=== PATIENT | male | born 1970 | race African-American/Black ===

== ENCOUNTER 2025-02-01 16:38 | Inpatient (IN) | payer OTHER ==
[2025-02-01] VITALS (8 sets, daily range): BP systolic 130–161; BP diastolic 92–115; PULSE 86–93; RESP 8–18; TEMP 98–98.2; O2SAT 95–97
[~2025-02-01] VITALS: Ht 170.2 cm; Wt 65.8 kg
[2025-02-01] MEDS: SODIUM CHLORIDE 0.9% 1000ML 1,000 ML IV ONE (17:30)
[2025-02-01 17:31] LABS: BASOPHILS # (AUTO) 0.1 (0.0-0.1); BASOPHILS % 0.5 % (0.0-1.0); EOSINOPHILS # (AUTO) 0.1 (0.0-0.4); HEMATOCRIT 51.8 % (38.2-49.6); HEMOGLOBIN 17.7 g/dL (14.0-18.0); LYMPHOCYTES # (AUTO) 1.8 (1.0-3.2); LYMPHOCYTES % 15.9 % (18.0-39.1); MEAN CORPUSCULAR HEMOGLOBIN 27.2 pg (28-32); MEAN CORPUSCULAR HGB CONC 34.2 g/dL (31-35); MEAN CORPUSCULAR VOLUME 79.6 fL (81-99); MONOCYTES # (AUTO) 0.8 (0.2-0.8); NEUTROPHILS # (AUTO) 8.5 (2.1-6.9); NEUTROPHILS % 75.1 % (38.7-80.0); PLATELET COUNT 312 x10e3/uL (140-360); RED BLOOD COUNT 6.51 x10e6/uL (4.3-5.7); RED CELL DISTRIBUTION WIDTH 12.7 % (11.7-14.4); WHITE BLOOD COUNT 11.35 x10e3/uL (4.8-10.8)
[2025-02-01] MEDS ORDERED: ONDANSETRON HCL INJ 2MG/ML 2ML 2 MG/ML VIAL ONE (17:31)
[2025-02-01 17:38] LABS: ABG PCO2 24 mmHg (35-45); ABG PH 7.54 (7.35-7.45); ABG PO2 118 mmHg (80-105)
[2025-02-01 17:39] LABS: ABG HCO3 21 mmol/L (22-26); ABG TCO2 21
[2025-02-01 17:39] LABS: CLARITY,URINE CLEAR (CLEAR); COLOR,URINE STRAW (YELLOW); PH,URINE 6 (5 - 7)
[2025-02-01] MEDS: SODIUM CHLORIDE 0.9% 1000ML 1,000 ML IV STA ×2 (17:39)
[2025-02-01] MEDS: ONDANSETRON HCL INJ 2MG/ML 2ML 2 MG/ML VIAL IV STA (17:39)
[2025-02-01 17:40] LABS: BILIRUBIN,URINE NEGATIVE (NEGATIVE); GLUCOSE, URINE 500 (NEGATIVE); KETONES,URINE 2+ (NEGATIVE); LEUKOCYTE ESTERASE ,URINE NEGATIVE (NEGATIVE); NITRITE,URINE NEGATIVE (NEGATIVE); PROTEIN,URINE DIPSTICK 2+ (NEGATIVE); URINE UROBILINOGEN 0.2 mg/dL (0.2 - 1)
[2025-02-01] MEDS: INSULIN REGULAR, HUMAN 100 UNIT/1 ML IV ONE (17:41)
[2025-02-01 17:48] LABS: MAGNESIUM 2.4 MG/DL (1.3-2.1)
[2025-02-01 17:49] LABS: AMPHETAMINES SCREEN,URINE NEGATIVE (NEGATIVE); BENZODIAZEPINES SCREEN,URINE NEGATIVE (NEGATIVE); CANNABINOIDS SCREEN,URINE NEGATIVE (NEGATIVE); COCAINE SCREEN,URINE NEGATIVE (NEGATIVE); OPIATES SCREEN,URINE NEGATIVE (NEGATIVE); PHENCYCLIDINE SCREEN,URINE NEGATIVE (NEGATIVE)
[2025-02-01 17:50] LABS: METHADONE SCREEN, URINE NEGATIVE (NEGATIVE)
[2025-02-01 17:52] LABS: ALBUMIN 4.2 g/dL (3.5-5.0); ANION GAP 22.6 mmol/L (8-16); BILIRUBIN,TOTAL 0.5 mg/dL (0.2-1.2); CALCIUM 10.6 mg/dL (8.4-10.2); CREATININE, SERUM 2.13 mg/dL (0.72-1.25); POTASSIUM 4.6 mmol/L (3.5-5.1); TOTAL PROTEIN 8.6 g/dL (6.5-8.1)
[2025-02-01 17:54] LABS: RBC,URINE 0-5 /HPF (0-5); TROPONIN I 0.006 ng/mL (0-0.300); WBC,URINE (MAN) 0-5 /HPF (0-5)
[2025-02-01 17:57] LABS: INR 0.75; PROTHROMBIN TIME 11.3 seconds (11.9-14.5)
[2025-02-01 17:58] LABS: PARTIAL THROMBOPLASTIN TIME 23.5 seconds (23.8-35.5)
[2025-02-01] MEDS ORDERED: SODIUM CHLORIDE 0.9% 1000ML 1,000 ML IV SCH (18:00)
[2025-02-01] MEDS ORDERED: DEXTROSE 5%/0.45% SOD CHL 1,000 ML IV SCH (18:00)
[2025-02-01] MEDS ORDERED: INSULIN REGULAR, HUMAN 3ML VL 100 UNIT in SODIUM CHLORIDE 0.9% 99 ML IV SCH (18:00)
[2025-02-01] MEDS ORDERED: MAGNESIUM SULF 1GRAM/DEXTROSE 100 ML IV PRN (18:00)
[2025-02-01] MEDS ORDERED: POTASSIUM CHLORIDE 20MEQ/100ML 200 ML IV PRN (18:00)
[2025-02-01 18:09] LABS: ACETAMINOPHEN < 3.0 ug/mL (10-30); ETHANOL < 10.0 mg/dL (0.0-10.0); SALICYLATE < 5.0 mg/dL (0-30)
[2025-02-01] MEDS: LABETALOL HCL 5 MG/ML 20ML VIAL IV STA (18:25)
[2025-02-01] MEDS ORDERED: DEXTROSE 50% SYRINGE 50 ML IV PRN (18:30)
[2025-02-01] MEDS ORDERED: ONDANSETRON HCL INJ 2MG/ML 2ML 2 MG/ML VIAL IV PRN (18:30)
[2025-02-01] MEDS: NICARDIPINE 20MG/200ML PREMIX 200 ML IV SCH (19:00)
[2025-02-01] MEDS: SODIUM CHLORIDE 0.9% 1000ML 1,000 ML IV SCH (19:13)
[2025-02-01] MEDS: INSULIN REGULAR, HUMAN 3ML VL 100 UNIT in SODIUM CHLORIDE 0.9% 99 ML IV SCH (19:17)
[2025-02-01] MEDS ORDERED: ZOLPIDEM TARTRATE 5 MG TAB PO PRN (21:00)
[2025-02-02] VITALS (55 sets, daily range): BP systolic 109–184; BP diastolic 80–136; PULSE 68–110; RESP 8–25; TEMP 97.8–98; O2SAT 93–100
[2025-02-02 03:09] LABS: ANION GAP 12.7 mmol/L (8-16); CREATININE, SERUM 1.23 mg/dL (0.72-1.25)
[2025-02-02 03:10] LABS: CALCIUM 7.9 mg/dL (8.4-10.2)
[2025-02-02 03:11] LABS: POTASSIUM 2.7 mmol/L (3.5-5.1)
[2025-02-02] MEDS: POTASSIUM CHLORIDE 20MEQ/100ML 100 ML IV ONE ×2 (03:22→12:05)
[2025-02-02] MEDS: DEXTROSE 5%/0.45% SOD CHL 1,000 ML IV PRN ×2 (03:34→23:29)
[2025-02-02] MEDS ORDERED: DEXTROSE 50% SYRINGE 50 ML IV PRN (06:45)
[2025-02-02] MEDS: POTASSIUM CHLORIDE 20 MEQ TAB CR PO STA (06:52)
[2025-02-02 06:53] LABS: BASOPHILS # (AUTO) 0.1 (0.0-0.1); BASOPHILS % 0.7 % (0.0-1.0); EOSINOPHILS # (AUTO) 0.2 (0.0-0.4); EOSINOPHILS % 2.2 % (0.0-6.0); HEMATOCRIT 46.3 % (38.2-49.6); HEMOGLOBIN 14.7 g/dL (14.0-18.0); LYMPHOCYTES # (AUTO) 2.7 (1.0-3.2); LYMPHOCYTES % 24.4 % (18.0-39.1); MEAN CORPUSCULAR HEMOGLOBIN 27.1 pg (28-32); MEAN CORPUSCULAR HGB CONC 31.7 g/dL (31-35); MEAN CORPUSCULAR VOLUME 85.3 fL (81-99); MONOCYTES # (AUTO) 0.9 (0.2-0.8); MONOCYTES % 7.8 % (4.4-11.3); NEUTROPHILS # (AUTO) 7.2 (2.1-6.9); NEUTROPHILS % 64.5 % (38.7-80.0); PLATELET COUNT 250 x10e3/uL (140-360); RED BLOOD COUNT 5.43 x10e6/uL (4.3-5.7); RED CELL DISTRIBUTION WIDTH 12.6 % (11.7-14.4); WHITE BLOOD COUNT 11.15 x10e3/uL (4.8-10.8)
[2025-02-02 07:33] LABS: ALBUMIN 2.9 g/dL (3.5-5.0); ALBUMIN/GLOBULIN RATIO 0.9 (0.8-2.0); ANION GAP 15.4 mmol/L (8-16); BILIRUBIN,TOTAL 0.4 mg/dL (0.2-1.2); CALCIUM 8.2 mg/dL (8.4-10.2); CREATININE, SERUM 1.36 mg/dL (0.72-1.25)
[2025-02-02 07:34] LABS: POTASSIUM 3.4 mmol/L (3.5-5.1)
[2025-02-02] MEDS ORDERED: VALSARTAN 160 MG TAB PO SCH (09:00)
[2025-02-02] MEDS: VALSARTAN 80 MG TAB PO SCH (10:32)
[2025-02-02] MEDS: INSULIN REGULAR, HUMAN 100 UNIT/1 ML SQ SCH (10:38)
[2025-02-02] MEDS: SOD CHL 0.45%/POT CHL 20MEQ 1,000 ML IV ONE (11:50)
[2025-02-03] VITALS (28 sets, daily range): BP systolic 114–170; BP diastolic 88–127; PULSE 82–111; RESP 9–17; TEMP 97.6–98.2; O2SAT 94–99
[2025-02-03] MEDS: DOCUSATE SODIUM 100 MG CAP PO ONE (03:20)
[2025-02-03] MEDS: METOCLOPRAMIDE HCL 10 MG/2ML VIAL IV SCH (06:07)
[2025-02-03 06:14] LABS: BASOPHILS # (AUTO) 0.1 (0.0-0.1); BASOPHILS % 0.5 % (0.0-1.0); EOSINOPHILS # (AUTO) 0.2 (0.0-0.4); EOSINOPHILS % 2.2 % (0.0-6.0); HEMATOCRIT 47.9 % (38.2-49.6); HEMOGLOBIN 15.6 g/dL (14.0-18.0); LYMPHOCYTES # (AUTO) 3.5 (1.0-3.2); LYMPHOCYTES % 31.5 % (18.0-39.1); MEAN CORPUSCULAR HEMOGLOBIN 26.9 pg (28-32); MEAN CORPUSCULAR HGB CONC 32.6 g/dL (31-35); MEAN CORPUSCULAR VOLUME 82.7 fL (81-99); MONOCYTES # (AUTO) 0.7 (0.2-0.8); MONOCYTES % 6.1 % (4.4-11.3); NEUTROPHILS # (AUTO) 6.5 (2.1-6.9); NEUTROPHILS % 59.1 % (38.7-80.0); PLATELET COUNT 258 x10e3/uL (140-360); RED BLOOD COUNT 5.79 x10e6/uL (4.3-5.7); RED CELL DISTRIBUTION WIDTH 12.6 % (11.7-14.4); WHITE BLOOD COUNT 11.02 x10e3/uL (4.8-10.8)
[2025-02-03 06:47] LABS: ALBUMIN/GLOBULIN RATIO 0.9 (0.8-2.0); BILIRUBIN,TOTAL 0.6 mg/dL (0.2-1.2); CALCIUM 8.3 mg/dL (8.4-10.2); CREATININE, SERUM 1.15 mg/dL (0.72-1.25); TOTAL PROTEIN 6.3 g/dL (6.5-8.1)
[2025-02-03 07:34] LABS: ABG HCO3 21 mmol/L (22-26); ABG PCO2 24 mmHg (35-45); ABG PH 7.54 (7.35-7.45); ABG PO2 118 mmHg (80-105); ABG TCO2 21
[2025-02-03] MEDS: VALSARTAN 80 MG TAB PO SCH (09:00)
[2025-02-03] MEDS: DOCUSATE SODIUM 100 MG CAP PO SCH (09:00)
[2025-02-03] MEDS: POTASSIUM CITRATE ER 10 MEQ TAB PO ONE (09:01)
[2025-02-03 09:43] LABS: ABG HCO3 21 mmol/L (22-26); ABG PCO2 33 mmHg (35-45); ABG PH 7.41 (7.35-7.45); ABG PO2 86 mmHg (80-105); ABG TCO2 22
[2025-02-03 10:47] LABS: ABG HCO3 21 mmol/L (22-26); ABG PCO2 33 mmHg (35-45); ABG PH 7.41 (7.35-7.45); ABG PO2 86 mmHg (80-105); ABG TCO2 22
[2025-02-03] MEDS: LABETALOL HCL 5 MG/ML 20ML VIAL IV PRN (13:11)
[2025-02-04] VITALS (9 sets, daily range): BP systolic 130–149; BP diastolic 83–109; PULSE 85–105; RESP 8–14; TEMP 98.4–98.9; O2SAT 96–99
[2025-02-04] MEDS ORDERED: PROTONIX20 MG PO (13:19)
[2025-02-04] MEDS ORDERED: DIOVAN160 MG PO (13:22)
[2025-02-04] MEDS ORDERED: REGLAN5 MG PO (13:23)
[2025-02-04] MEDS ORDERED: SEMGLEE (Y100 UNIT/2 SQ (13:27)
[2025-02-04] MEDS ORDERED: METFORMIN HCL500 MG PO (13:28)
== END 2025-02-04 14:45 | disposition home or self-care (01) | DRG 638 ==
LOC: ER 17:20 → ERHOLD 18:30 → ICU 22:00
PROVIDERS: ADMIT Internal Medicine; ATTEND Internal Medicine
PROC: 4A033B1 Measurement of Arterial Pressure, Peripheral, Percutaneous Approach (ICD-10-PCS; principal; 2025-02-01)
DX: E11.10 Type 2 diabetes mellitus with ketoacidosis without coma (principal); E87.4 Mixed disorder of acid-base balance; N17.9 Acute kidney failure, unspecified; Z79.84 Long term (current) use of oral hypoglycemic drugs; I16.0 Hypertensive urgency; I10 Essential (primary) hypertension; E86.0 Dehydration; K59.00 Constipation, unspecified; E87.6 Hypokalemia; D17.0 Benign lipomatous neoplasm of skin and subcutaneous tissue of head, face and neck; Q63.2 Ectopic kidney; R11.2 Nausea with vomiting, unspecified
CPT/HCPCS: 36415; 36600; 71045; 72125; 74176; 76770; 80048; 80053; 80307; 80320; 80329; 81001; 82550; 82805; 82948; 83605; 83735; 84484; 85025; 85610; 85730; 87040; 87086; 93005; 93306; 96372; 99252; 99284; J2405; J2470; J2765; J3480; J7030; J7050